=== PATIENT | female | born 1995 | race Caucasian/White ===

== ENCOUNTER 2021-05-28 09:02 | Emergency (ER) | payer OTHER, SELFPAY ==
[2021-05-28 09:05] VITALS: BP 121/82; PULSE 79; RESP 16; TEMP 36.4; O2SAT 100; BMI 25.0
--- NOTE | 2021-05-28 09:13 | ECG_ITS ---
[facility] Test Date: 2021-05-28 Pat Name: ALEXANDER CHAVEZ Department: Room: Gender: Female Senior Partner: : 1995 Requested By: Brian Hayden Order Number: [id number] Iftikhar MD: Kimberly Monk M.D. Measurements Intervals [place] Rate: 74 P: -16 VT: 136 QRS: 25 QRSD: 102 T: 29 QT: 369 QTc: 411 Interpretive Statements SINUS RHYTHM LOW QRS VOLTAGE IN PRECORDIAL LEADS [QRS DEFLECTION < 1.0 mV IN CHEST LEADS] No previous ECG available for comparison Electronically Signed On 05-28-2021 20:34:42 CDT by Kimberly Monk M.D. [email or web address]
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
[2021-05-28 09:16] VITALS: BP 121/82; PULSE 77; O2SAT 100
[2021-05-28] MEDS: iohexol 300 mg/mL 100 mL Btl IV (09:34)
[2021-05-28 09:48] VITALS: BP 141/89; PULSE 89; O2SAT 99
--- NOTE | 2021-05-28 09:49 | PC.PHAR ---
pt [facility] states she hasnt taken it in a month pt states she just decided to stop taking-
[2021-05-28 10:05] LABS: Basophils # 0.1 10^3/uL (0.0-0.1); Basophils % 0.3 %; Eosinophils % 0.2 %; Hematocrit 39.8 % (37.0-47.0); Hemoglobin 13.2 g/dL (11.5-15.3); Lymphocytes # 1.3 10^3/uL (0.8-4.8); Lymphocytes % 5.9 %; Mean Corpuscular HGB Conc 33.2 g/dL (30.0-36.0); Mean Corpuscular Hemoglobin 29.5 pg (28.0-34.0); Mean Corpuscular Volume 88.8 fl (81-99); Mean Platelet Volume 10.2 fL (7.4-10.4); Monocytes # 1.2 10^3/uL (0.2-0.9); Monocytes % 5.6 %; Neutrophils % 87.6 %; Nucleated Red Blood Cells % 0 %; Platelet Count 341 10^3/cmm (130-400); Red Blood Count 4.48 10^6/uL (4.1-5.3); Red Cell Distribution Width 12.7 % (12.1-15.1); White Blood Count 21.9 10^3/uL (4.0-10.0)
== END 2021-05-28 10:48 ==
PROVIDERS: Emergency Provider Family Medicine
DX: S36.039A Unspecified laceration of spleen, initial encounter (principal); V29.9XXA Motorcycle rider (driver) (passenger) injured in unspecified traffic accident, initial encounter
CPT/HCPCS: 70450; 71260; 72125; 74177; 85025; 93005; 99285; Q9967

== ENCOUNTER 2021-11-07 13:28 | Emergency (ER) | payer OTHER, SELFPAY ==
[2021-11-07 13:46] VITALS: BP 118/90; PULSE 75; RESP 18; TEMP 36.7; O2SAT 99; BMI 25.9
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
[2021-11-07 14:10] VITALS: BP 115/82; PULSE 64; RESP 16; O2SAT 96
--- NOTE | 2021-11-07 14:18 | CTR_ITS ---
PROCEDURE INFORMATION: Exam: CT Abdomen And Pelvis With Contrast Exam date and time: 11/07/2021 2:18 PM Age: 26 years old Clinical indication: Abdominal pain; Generalized; Additional info: Abdominal pain, generalized, n/v/d TECHNIQUE: Imaging protocol: Computed tomography of the abdomen and pelvis with contrast. Axial, coronal and sagittal reformatted images were created and reviewed. Radiation optimization: All CT scans at this facility use at least one of these dose optimization techniques: automated exposure control; mA and/or kV adjustment per patient size (includes targeted exams where dose is matched to clinical indication); or iterative reconstruction. Contrast material: OMNI 300; Contrast volume: 90 ml; Contrast route: INTRAVENOUS (IV); COMPARISON: CT chest abd pel w con* 05/28/2021 9:35 AM RADIATION DOSE METRICS: Total DLP (mGy-cm): 1142.12 FINDINGS: Liver: Unremarkable. Gallbladder and bile ducts: No radiodense gallstones. No biliary ductal dilatation. Pancreas: Unremarkable. Spleen: Unremarkable. Adrenal glands: Normal. No mass. Kidneys and ureters: No mass. No radiodense calculi. No hydronephrosis. Stomach and bowel: No bowel wall thickening. No obstruction. No pneumatosis. Appendix: Normal. Intraperitoneal space: Trace nonspecific free pelvic fluid, likely physiologic. No organized fluid collection. No free air. Vasculature: Unremarkable. No aneurysm. Lymph nodes: Small mesenteric lymph nodes, some of which are clustered along the right psoas musculature. No pathologically enlarged lymph nodes. Urinary bladder: Unremarkable as visualized. Reproductive: Probable involuting left ovarian corpus luteal cyst. Bones/joints: No acute osseous abnormality. Soft tissues: Tiny, fat containing umbilical hernia. CT/CT abdomen pelvis w con* [id number] IMPRESSION: 1. Small mesenteric lymph nodes, some of which are clustered along the right psoas musculature. Findings are nonspecific in appearance but can be seen with mesenteric adenitis. 2. Additional findings, as above.
[2021-11-07 14:25] LABS: Basophils # 0.1 10^3/uL (0.0-0.1); Basophils % 0.7 %; Eosinophils # 0.1 10^3/uL (0.0-0.8); Hematocrit 43.8 % (37.0-47.0); Hemoglobin 14.4 g/dL (11.5-15.3); Lymphocytes # 1.5 10^3/uL (0.8-4.8); Mean Corpuscular HGB Conc 32.9 g/dL (30.0-36.0); Mean Corpuscular Hemoglobin 28.5 pg (28.0-34.0); Mean Corpuscular Volume 86.7 fl (81-99); Mean Platelet Volume 9.8 fL (7.4-10.4); Monocytes # 0.9 10^3/uL (0.2-0.9); Monocytes % 10.6 %; Neutrophils # 5.83 10^3/uL (1.8-7.7); Neutrophils % 69.6 %; Nucleated Red Blood Cells % 0 %; Platelet Count 369 10^3/cmm (130-400); Red Blood Count 5.05 10^6/uL (4.1-5.3); Red Cell Distribution Width 12.1 % (12.1-15.1); White Blood Count 8.4 10^3/uL (4.0-10.0)
[2021-11-07] MEDS: lactated ringers 1,000 ML 999 ML IV (14:34)
[2021-11-07 14:35] VITALS: RESP 16
[2021-11-07] MEDS: ondansetron 2 mg/ML SDV 2 mL 4 MG IVP (14:35)
[2021-11-07] MEDS: morphine 4 mg/mL SDV 1 mL IVP (14:35)
[2021-11-07 14:39] VITALS: BP 118/76; PULSE 88; RESP 16; O2SAT 99
[2021-11-07 14:40] LABS: Alanine Aminotransferase 21 U/L (0-33); Albumin Level 4.5 g/dL (3.5-5.2); Alkaline Phosphatase 49 IU/L (35-105); Anion Gap 15.9 (5-19); Aspartate Amino Transferase 21 U/L (0-32); Blood Urea Nitrogen 7 mg/dL (6-20); Calcium 8.8 mg/dL (8.5-10.5); Carbon Dioxide 27 mmol/L (22-29); Chloride 100 mmol/L (98-107); Glucose 102 mg/dL (65-115); Lipase 20 U/L (13-60); Osmolality Calculated 286 mOsm/kg (285-295); Potassium 3.9 mmol/L (3.5-5.1); Sodium 139 mmol/L (136-145); Total Bilirubin 0.3 mg/dL (0.15-1.2); Total Protein 7.5 g/dL (6.6-8.7)
[2021-11-07 15:18] LABS: Add Urine Microscopic? YES; Bilirubin Urine 1+ (Negative); Blood Urine Neg (Negative); Glucose Urine UA Norm (Normal); Ketones Urine 2+ (Negative); Leukocyte Esterase Urine Trace (Negative); Nitrate Urine Negative (Negative); Protein Urine Neg (Negative); Specific Gravity, Urine 1.015 (1.005-1.030); Urine Appearance Clear (CLEAR); Urine Color Yellow (Yellow); Urobilinogen Urine 1 mg/dL (Negative); pH Urine 7 (5-7)
[2021-11-07] MEDS: iohexol 300 mg/mL 100 mL Btl IV (15:20)
[2021-11-07 15:33] LABS: Add Urine Culture? No; Bacteria Urine TRACE /hpf; Mucus Urine TRACE /hpf; WBC Urine 0-4 /hpf (0-5)
[2021-11-07 16:50] VITALS: BP 120/79; PULSE 76; RESP 16; O2SAT 99
== END 2021-11-07 16:51 | disposition home or self-care (01) ==
PROVIDERS: Emergency Provider Emergency Medicine
DX: I88.0 Nonspecific mesenteric lymphadenitis (principal); E86.0 Dehydration
CPT/HCPCS: 74177; 80053; 81001; 83690; 85025; 96361; 96374; 96375; 99284; J2270; J2405; Q9967

== ENCOUNTER 2021-11-24 11:03 | Emergency (ER) | payer OTHER, SELFPAY ==
[2021-11-24 11:08] VITALS: BP 124/83; PULSE 67; RESP 16; TEMP 36.8; O2SAT 98; BMI 24.3
--- NOTE | 2021-11-24 11:25 | W.ED.ABDPA2 ---
Documented by User: FAIZA Navarro 11/24/21 14:08 HPI - Abdominal Pain General: Chief Complaint: Abdominal Pain Stated Complaint: Stomach pain Time Seen by Provider: 11/24/21 11:06 Source: patient Mode of arrival: ambulatory Limitations: no limitations History of Present Illness: Patient is a 26-year-old female who presents to ED today with a complaint of daily abdominal pains and diarrhea over the past month. She states her abdominal pain is worse when she wakes up in the mornings and will often wake her from sleep. She rates that pain at a 9/10. She tells me she will immediately have the urge to defecate and will have a few episodes of non-bloody diarrhea stool. She tells me she will not have any further diarrhea throughout the day and her abdominal pain will improve. Patient was seen here in our facility on 11/10 for similar symptoms although she did have vomiting at that time. Patient states she has not had any further episodes of vomiting. Patient is not running fevers. No urinary complaints. LMP was approximately a week ago. No dietary changes. No new medications. No unexplained weight loss. She does state her mother has a history of IBS. She has not had any follow-up outside of an emergency setting. MD elicited complaint: abdominal pain Pertinent past history: none Onset (ago): month(s) Pain Consistency: intermittent Location: Diffuse Severity: severe Pain scale (0-10): 9 Quality: cramping and sharp Radiation: none Migration to: no migration Exacerbating factors: nothing Relieving factors: bowel movement Associated Symptoms: Reports bloating and diarrhea; Denies chills, coffee ground emesis, dysuria, fever(s), hematochezia, hematemesis, melena, nausea and vomiting Related Data: Hx Last Menstrual Period: a few days ago-still bleeding Patient : No Review of Systems Const: Denies: fever(s), chills, body aches, fatigue or malaise Card: Denies: chest pain Resp: Denies: dyspnea GI: Reports: abdominal pain, diarrhea and bloating; Denies: nausea, vomiting, hematemesis, coffee ground emesis, pain on defecation, rectal pain, hematochezia, melena, mucus in stool or white/light colored stool : Denies: flank pain, dysuria, vaginal bleeding or pelvic pain Musc: Denies: neck pain, back pain, extremity pain or joint pain Skin/Breast: Denies: rash Neuro: Denies: headache(s) or dizziness PFSH ED PFSH: Medical History History of spleen injury Scoliosis Surgical History No significant past surgical history Physical Exam Const: COMMON NORMALS: no acute distress, average body habitus, patient oriented x3, no limitations, healthy appearing, alert and well nourished HENMT: COMMON NORMALS: normocephalic and atraumatic HEAD & SCALP: normocephalic and atraumatic Resp: COMMON NORMALS: normal respiratory effort and clear to auscultation bilaterally AUSCULTATION: clear to auscultation bilaterally Cardio: COMMON NORMALS: regular rate and regular rhythm RATE: regular rate RHYTHM: regular rhythm GI: COMMON NORMALS: Normal to inspection, nondistended, normoactive bowel sounds present, Soft to palpation, No hepatosplenomegaly present and no masses INSPECTION: Yes normal to inspection PALPATION: Yes Soft to palpation, Yes Tenderness to palpation present (GI) (mild diffuse tenderness-non surgical exam), No Guarding due to palpation present (GI), No Rigid due to palpation and Yes No hepatosplenomegaly present : COMMON NORMALS: Yes no CVA tenderness BLADDER/KIDNEY EXAM: Yes no CVA tenderness Back/Pelvis: COMMON NORMALS: no CVA tenderness Extremity: GENERAL: Yes normal exam except as noted Neuro: MARCELLO COMA SCALE: document GCS findings Marcello coma scale eye opening: Spontaneous Marcello coma scale verbal response: Orientated Dickinson coma scale motor response: Obey commands Marcello coma scale total score: 15 COMMON NORMALS: patient oriented x3, moves all extremities, no focal motor deficits, no sensory deficits noted and gait normal SENSORIUM/ORIENTATION: Yes alert Skin: COMMON NORMALS: no rashes or lesions noted GENERAL SKIN EXAM: no rashes or lesions noted Course Vital Signs: Vital signs: Vital Signs Temperature 98.3 F 11/24/21 11:08 Pulse Rate 67 11/24/21 11:08 Respiratory Rate 16 11/24/21 11:08 Blood Pressure 112/63 11/24/21 13:12 Pulse Oximetry 98 11/24/21 13:12 MDM - Abdominal Pain Medical Decision Making Patient has a nonsurgical abdominal examination. Her vital signs are perfect. Patient's history is that abdominal pain is worst first thing in the morning and is accompanied by several episodes of nonbloody diarrhea. She will not have any further episodes of diarrhea throughout the day and abdominal pain does improve. Blood work today is unremarkable. Patient received a CT scan of her abdomen/pelvis on her last ED visit here a few weeks ago which showed mesenteric adenitis but no other significant findings. I do not feel we need to repeat this on today's visit. Patient is tearful and frustrated at the lack of diagnosis. I believe patient would benefit from GI specialty consult. She does not want to go to [place] if possible therefore will have case management see if Dr. Miranda could evaluate her for further etiologies of her discomfort. Will try trial of Bentyl in hopes that this may help with her colicky/crampy pains in the mornings. Lab Data : 11/24/21 11:25 11/24/21 12:49 Labs/Radiology: Laboratory Results WBC 8.5 10^3/uL (4.0-10.0) 11/24/21 11:25 RBC 4.44 10^6/uL (4.1-5.3) 11/24/21 11:25 Hgb 12.9 g/dL (11.5-15.3) 11/24/21 11:25 Hct 39.0 % (37.0-47.0) 11/24/21 11:25 MCV 87.8 fl (81-99) 11/24/21 11:25 MCH 29.1 pg (28.0-34.0) 11/24/21 11:25 MCHC 33.1 g/dL (30.0-36.0) 11/24/21 11:25 RDW 12.5 % (12.1-15.1) 11/24/21 11:25 Plt Count 409 10^3/cmm (130-400) H 11/24/21 11:25 MPV 10.1 fL (7.4-10.4) 11/24/21 11:25 Neut % (Auto) 76.4 % 11/24/21 11:25 Lymph % (Auto) 13.8 % 11/24/21 11:25 [place] % (Auto) 7.3 % 11/24/21 11:25 Eos % (Auto) 1.6 % 11/24/21 11:25 Baso % (Auto) 0.7 % 11/24/21 11:25 Neut # (Auto) 6.49 10^3/uL (1.8-7.7) 11/24/21 11:25 Lymph # (Auto) 1.2 10^3/uL (0.8-4.8) 11/24/21 11:25 [place] # (Auto) 0.6 10^3/uL (0.2-0.9) 11/24/21 11:25 Eos # (Auto) 0.1 10^3/uL (0.0-0.8) 11/24/21 11:25 Baso # (Auto) 0.1 10^3/uL (0.0-0.1) 11/24/21 11:25 Nucleated RBC % (auto) 0 % 11/24/21 11:25 Nucleated RBCs # 0.0 /100WBC 11/24/21 11:25 Sodium 138 mmol/L (136-145) 11/24/21 12:49 Potassium 4.6 mmol/L (3.5-5.1) 11/24/21 12:49 Chloride 103 mmol/L (98-107) 11/24/21 12:49 Carbon Dioxide 26 mmol/L (22-29) 11/24/21 12:49 Anion Gap 13.6 (5-19) 11/24/21 12:49 BUN 6 mg/dL (6-20) 11/24/21 12:49 Creatinine 0.7 mg/dL (0.5-0.9) 11/24/21 12:49 GFR Calculation 102.0 mL/min (90-130) 11/24/21 12:49 Glucose 105 mg/dL (65-115) 11/24/21 12:49 Calculated Osmolality 284 mOsm/kg (285-295) L 11/24/21 12:49 Calcium 9.8 mg/dL (8.5-10.5) 11/24/21 12:49 Total Bilirubin 0.4 mg/dL (0.15-1.2) 11/24/21 12:49 AST 19 U/L (0-32) 11/24/21 12:49 ALT 18 U/L (0-33) 11/24/21 12:49 Alkaline Phosphatase 45 IU/L (35-105) 11/24/21 12:49 Total Protein 7.1 g/dL (6.6-8.7) 11/24/21 12:49 Albumin 4.7 g/dL (3.5-5.2) 11/24/21 12:49 Globulin 2.4 g/dL (1.3-4.6) 11/24/21 12:49 Lipase 14 U/L (13-60) 11/24/21 12:49 HCG, Qual Negative (Negative) 11/24/21 12:49 Urine Color Yellow (Yellow) 11/24/21 11:50 Urine Appearance Clear (CLEAR) 11/24/21 11:50 Urine pH 6 (5-7) 11/24/21 11:50 Ur Specific [place] 1.015 (1.005-1.030) 11/24/21 11:50 Urine Protein Neg (Negative) 11/24/21 11:50 Urine Glucose (UA) Norm (Normal) 11/24/21 11:50 Urine Ketones Negative (Negative) 11/24/21 11:50 Urine Blood Neg (Negative) 11/24/21 11:50 Urine Nitrate Negative (Negative) 11/24/21 11:50 Urine Bilirubin Neg (Negative) 11/24/21 11:50 Urine Urobilinogen Norm mg/dL (Negative) 11/24/21 11:50 Ur Leukocyte Esterase Negative (Negative) 11/24/21 11:50 Discharge Plan Discharge Patient Disposition: Home Clinical Impression: Abdominal pain of unknown etiology Condition: Stable Prescriptions: New dicyclomine 10 mg capsule 10 mg PO TID Qty: 20 0RF No Action oxycodone 5 mg tablet 5 mg PO Q4H PRN (Reason: pain) Qty: 10 0RF Discharge Orders: Discharge ED (Routine); Ordered 11/24/21 Ordered By: Jacqueline Ramirez Patient Instructions: Abdominal Pain (ED) Coding Level of Care Code ED Executive Staff Assistant for [employer] Fwd Exam Comprehensive Documented by User: Zeus Mccullough MD 11/30/21 21:45 HPI - Abdominal Pain General: Chief Complaint: Abdominal Pain Stated Complaint: Stomach pain Time Seen by Provider: 11/24/21 11:06 [facility] ED PFSH: Medical History History of spleen injury Scoliosis Surgical History No significant past surgical history Physical Exam Neuro: MARCELLO COMA SCALE: document GCS findings Marcello coma scale total score: 15 Course Vital Signs: Vital signs: Vital Signs Temperature 98.3 F 11/24/21 11:08 Pulse Rate 67 11/24/21 11:08 Respiratory Rate 16 11/24/21 11:08 Blood Pressure 112/63 11/24/21 13:12 Pulse Oximetry 98 11/24/21 13:12 MDM - Abdominal Pain Medical Decision Making Patient has a nonsurgical abdominal examination. Her vital signs are perfect. Patient's history is that abdominal pain is worst first thing in the morning and is accompanied by several episodes of nonbloody diarrhea. She will not have any further episodes of diarrhea throughout the day and abdominal pain does improve. Blood work today is unremarkable. Patient received a CT scan of her abdomen/pelvis on her last ED visit here a few weeks ago which showed mesenteric adenitis but no other significant findings. I do not feel we need to repeat this on today's visit. Patient is tearful and frustrated at the lack of diagnosis. I believe patient would benefit from GI specialty consult. She does not want to go to [place] if possible therefore will have case management see if Dr. Miranda could evaluate her for further etiologies of her discomfort. Will try trial of Bentyl in hopes that this may help with her colicky/crampy pains in the mornings. I have reviewed this documentation by FAIZA Navarro. Zeus Mccullough MD Emergency Medicine Lab Data : 11/24/21 11:25 11/24/21 12:49 Labs/Radiology: Laboratory Results WBC 8.5 10^3/uL (4.0-10.0) 11/24/21 11:25 RBC 4.44 10^6/uL (4.1-5.3) 11/24/21 11:25 Hgb 12.9 g/dL (11.5-15.3) 11/24/21 11:25 Hct 39.0 % (37.0-47.0) 11/24/21 11:25 MCV 87.8 fl (81-99) 11/24/21 11:25 MCH 29.1 pg (28.0-34.0) 11/24/21 11:25 MCHC 33.1 g/dL (30.0-36.0) 11/24/21 11:25 RDW 12.5 % (12.1-15.1) 11/24/21 11:25 Plt Count 409 10^3/cmm (130-400) H 11/24/21 11:25 MPV 10.1 fL (7.4-10.4) 11/24/21 11:25 Neut % (Auto) 76.4 % 11/24/21 11:25 Lymph % (Auto) 13.8 % 11/24/21 11:25 [place] % (Auto) 7.3 % 11/24/21 11:25 Eos % (Auto) 1.6 % 11/24/21 11:25 Baso % (Auto) 0.7 % 11/24/21 11:25 Neut # (Auto) 6.49 10^3/uL (1.8-7.7) 11/24/21 11:25 Lymph # (Auto) 1.2 10^3/uL (0.8-4.8) 11/24/21 11:25 [place] # (Auto) 0.6 10^3/uL (0.2-0.9) 11/24/21 11:25 Eos # (Auto) 0.1 10^3/uL (0.0-0.8) 11/24/21 11:25 Baso # (Auto) 0.1 10^3/uL (0.0-0.1) 11/24/21 11:25 Nucleated RBC % (auto) 0 % 11/24/21 11:25 Nucleated RBCs # 0.0 /100WBC 11/24/21 11:25 Sodium 138 mmol/L (136-145) 11/24/21 12:49 Potassium 4.6 mmol/L (3.5-5.1) 11/24/21 12:49 Chloride 103 mmol/L (98-107) 11/24/21 12:49 Carbon Dioxide 26 mmol/L (22-29) 11/24/21 12:49 Anion Gap 13.6 (5-19) 11/24/21 12:49 BUN 6 mg/dL (6-20) 11/24/21 12:49 Creatinine 0.7 mg/dL (0.5-0.9) 11/24/21 12:49 GFR Calculation 102.0 mL/min (90-130) 11/24/21 12:49 Glucose 105 mg/dL (65-115) 11/24/21 12:49 Calculated Osmolality 284 mOsm/kg (285-295) L 11/24/21 12:49 Calcium 9.8 mg/dL (8.5-10.5) 11/24/21 12:49 Total Bilirubin 0.4 mg/dL (0.15-1.2) 11/24/21 12:49 AST 19 U/L (0-32) 11/24/21 12:49 ALT 18 U/L (0-33) 11/24/21 12:49 Alkaline Phosphatase 45 IU/L (35-105) 11/24/21 12:49 Total Protein 7.1 g/dL (6.6-8.7) 11/24/21 12:49 Albumin 4.7 g/dL (3.5-5.2) 11/24/21 12:49 Globulin 2.4 g/dL (1.3-4.6) 11/24/21 12:49 Lipase 14 U/L (13-60) 11/24/21 12:49 HCG, Qual Negative (Negative) 11/24/21 12:49 Urine Color Yellow (Yellow) 11/24/21 11:50 Urine Appearance Clear (CLEAR) 11/24/21 11:50 Urine pH 6 (5-7) 11/24/21 11:50 Ur Specific [place] 1.015 (1.005-1.030) 11/24/21 11:50 Urine Protein Neg (Negative) 11/24/21 11:50 Urine Glucose (UA) Norm (Normal) 11/24/21 11:50 Urine Ketones Negative (Negative) 11/24/21 11:50 Urine Blood Neg (Negative) 11/24/21 11:50 Urine Nitrate Negative (Negative) 11/24/21 11:50 Urine Bilirubin Neg (Negative) 11/24/21 11:50 Urine Urobilinogen Norm mg/dL (Negative) 11/24/21 11:50 Ur Leukocyte Esterase Negative (Negative) 11/24/21 11:50 Discharge Plan Discharge Patient Disposition: Home Clinical Impression: Abdominal pain of unknown etiology Condition: Stable Prescriptions: New dicyclomine 10 mg capsule 10 mg PO TID Qty: 20 0RF No Action oxycodone 5 mg tablet 5 mg PO Q4H PRN (Reason: pain) Qty: 10 0RF Discharge Orders: Discharge ED (Routine); Ordered 11/24/21 Ordered By: Jacqueline Ramirez Patient Instructions: Abdominal Pain (ED) Coding Level of Care Code ED Executive Staff Assistant for [employer] Fwd Exam Comprehensive
[2021-11-24 11:48] LABS: Basophils # 0.1 10^3/uL (0.0-0.1); Basophils % 0.7 %; Eosinophils # 0.1 10^3/uL (0.0-0.8); Eosinophils % 1.6 %; Hemoglobin 12.9 g/dL (11.5-15.3); Lymphocytes # 1.2 10^3/uL (0.8-4.8); Lymphocytes % 13.8 %; Mean Corpuscular HGB Conc 33.1 g/dL (30.0-36.0); Mean Corpuscular Hemoglobin 29.1 pg (28.0-34.0); Mean Corpuscular Volume 87.8 fl (81-99); Mean Platelet Volume 10.1 fL (7.4-10.4); Monocytes # 0.6 10^3/uL (0.2-0.9); Monocytes % 7.3 %; Neutrophils # 6.49 10^3/uL (1.8-7.7); Neutrophils % 76.4 %; Nucleated Red Blood Cells % 0 %; Platelet Count 409 10^3/cmm (130-400); Red Blood Count 4.44 10^6/uL (4.1-5.3); Red Cell Distribution Width 12.5 % (12.1-15.1); White Blood Count 8.5 10^3/uL (4.0-10.0)
[2021-11-24 12:03] LABS: Add Urine Microscopic? NO; Charge for UA Resulting for Rev
[2021-11-24 12:13] LABS: Bilirubin Urine Neg (Negative); Blood Urine Neg (Negative); Glucose Urine UA Norm (Normal); Ketones Urine Negative (Negative); Leukocyte Esterase Urine Negative (Negative); Nitrate Urine Negative (Negative); Protein Urine Neg (Negative); Specific Gravity, Urine 1.015 (1.005-1.030); Urine Appearance Clear (CLEAR); Urine Color Yellow (Yellow); Urobilinogen Urine Norm (Negative); pH Urine 6 (5-7)
--- NOTE | 2021-11-24 12:13 | PC.PHAR ---
pts [facility] med list has she is allergic to adhesives and sertraline pt states she is not allergic to anything-pt states she hasnt taken celexa in almost a year in [place]
[2021-11-24 13:12] VITALS: BP 112/63; O2SAT 98
[2021-11-24 13:16] LABS: HCG, Serum Qual Negative (Negative)
[2021-11-24 13:21] LABS: Alanine Aminotransferase 18 U/L (0-33); Albumin Level 4.7 g/dL (3.5-5.2); Alkaline Phosphatase 45 IU/L (35-105); Anion Gap 13.6 (5-19); Aspartate Amino Transferase 19 U/L (0-32); Blood Urea Nitrogen 6 mg/dL (6-20); Calcium 9.8 mg/dL (8.5-10.5); Carbon Dioxide 26 mmol/L (22-29); Chloride 103 mmol/L (98-107); Globulin 2.4 g/dL (1.3-4.6); Glucose 105 mg/dL (65-115); Lipase 14 U/L (13-60); Osmolality Calculated 284 mOsm/kg (285-295); Potassium 4.6 mmol/L (3.5-5.1); Sodium 138 mmol/L (136-145); Total Bilirubin 0.4 mg/dL (0.15-1.2); Total Protein 7.1 g/dL (6.6-8.7)
--- NOTE | 2021-11-25 10:10 | DCPLANNER ---
Addendum entered by Jacklyn Bedoya 12/29/21 20:33: Patient had follow up appointment for patient with Dr. Miranda - patient did attend appointment. Addendum entered by Jacklyn Bedoya 11/25/21 10:15: Patient has [facility] insurance, patients information was sent to Larry with [facility], for the authorization process could be started. Original Note: associate program manager had message to schedule a follow up appointment for patient with Dr. Miranda. associate program manager called the office of Dr. Miranda, spoke with Ashlee, gave clinic patients information. A follow up appointment was scheduled for , December 10, 2021 at 2:[address] Miranda. associate program manager called patient and gave her the appointment information.
== END 2021-11-24 14:24 | disposition home or self-care (01) ==
PROVIDERS: Emergency Provider Physician Assistant
DX: R10.9 Unspecified abdominal pain (principal)
CPT/HCPCS: 80053; 81003; 83690; 84703; 85025; 99283

== ENCOUNTER 2021-12-14 08:14 | Day surgery (SDC) | payer OTHER, SELFPAY ==
[2021-12-04 09:41] VITALS: BMI 24.3
--- NOTE | 2021-12-07 07:42 | P.HP_ITS ---
Same Day Surgery H&P Indication for Procedure/HPI DATE OF PROCEDURE: December 07, 2021 CHIEF COMPLAINT/INDICATIONFOR SURGICAL PROCEDURE: Nausea and vomiting PREOP DIAGNOSIS: Nausea and vomiting PLANNED PROCEDURE: Operation Date: 12/07/21 09:30 Proposed Procedures p EGD 33522/r10.13(Not Applicable) - Kal Miranda MD Medications/Allergies* Home Medications Medication Instructions Recorded Confirmed Type cyclobenzaprine 10 mg tablet 10 mg PO TID 12/03/21 12/04/21 History ondansetron 4 mg disintegrating 4 mg PO Q6H 12/03/21 12/04/21 History tablet Allergies/Adverse Reactions Allergy/AdvReac Type Severity Reaction Status Date / Time No Known Allergies Allergy Verified 12/03/21 14:51 Pertinent History/Comorbid Conditions* Medical History (Updated 12/03/21 @ 15:31 by Kal Miranda MD) History of spleen injury Scoliosis Surgical History (Updated 11/07/21 @ 14:25 by Zeus Mccullough MD) No significant past surgical history Pertinent Exam Findings alert, oriented x 3, clear to auscultation bilaterally, regular rate & rhythm, operative site marked and procedure specific exam findings Recommendations Surgery/Procedure today Coding Level of Care Code Acute [employer] Research Engineer for Brian Bonilla
--- NOTE | 2021-12-14 08:55 | ANES.PREANE2 ---
Pre-Anesthetic Assessment Height/Weight: Height 1.7 m Weight 70.307 kg Preop Diagnosis: Epigastric pain Operation Date: 12/14/21 09:30 Proposed Procedures p EGD 91276/r10.13(Not Applicable) - Kal Miranda MD Familial anesthetic complications: None Was Beta Riya taken within 24 hours: N/A Was Clonidine taken within 24 hours: N/A Social Tobacco and No alcohol Exam alert, oriented x 3, clear to auscultation bilaterally and regular rate & rhythm Airway Submandibular: within normal limits Cervical ROM: within normal limits Mallampati: Class II Dentition: chipped Pulmonary Chronic Obstructive Pulmonary Disease GI Gastroesophageal Reflux Disease Neuropsych Anxiety and Depression Anesthetic Plan ASA status: 2 Anesthesia: MAC Medications/Allergies Home Medications Medication Instructions Recorded Confirmed Last Taken Type pantoprazole 40 mg tablet,delayed 40 mg PO QAM #90 tab 12/03/21 12/10/21 Unknown Rx release Allergies Allergy/AdvReac Type Severity Reaction Status Date / Time No Known Allergies Allergy Verified 12/10/21 12:31 [facility] Anesthesia Medical History History of spleen injury Scoliosis Surgical History No significant past surgical history Female Reproductive History Date of last menstrual period: 12/22/21 Data Anesthesia Cardiac Studies: No Data to Display
[2021-12-14 09:03] VITALS: BP 105/67; PULSE 79; RESP 18; TEMP 36.4; O2SAT 99
[2021-12-14] MEDS: sodium chloride 0.9% 1,000 ML 30 ML IV (09:09)
[2021-12-14 09:12] LABS: OR HCG Qualitative Urine Negative (Negative)
[2021-12-14 09:24] VITALS: BP 108/70; PULSE 83; RESP 18; TEMP 36.4; O2SAT 93
--- NOTE | 2021-12-14 09:26 | ANE.PACU2 ---
Inpatient post-anesthesia follow up: Airway intact: Yes Vital signs: Temperature 97.6 F Pulse Rate 83 Respiratory Rate 18 Blood Pressure 108/70 Pulse Oximetry 93 Oxygen Delivery Me thod Room Air Oxygen Flow Rate Fraction of Inspir ed Oxygen Hydration adequate: Yes Nausea and vomiting: No Pain level: 1 Mental status: Baseline
[2021-12-14 09:30] VITALS: BP 106/62; PULSE 81; RESP 18; O2SAT 93
== END 2021-12-14 09:58 | disposition home or self-care (01) ==
PROVIDERS: Anesthesiology; Visit Provider Internal Medicine
PROC: 0DJ08ZZ Inspection of Upper Intestinal Tract, Via Natural or Artificial Opening Endoscopic (ICD-10-PCS; CPT 43235; principal; 2021-12-14 09:30)
DX: R10.13 Epigastric pain (principal); R11.2 Nausea with vomiting, unspecified; K31.7 Polyp of stomach and duodenum; J44.9 Chronic obstructive pulmonary disease, unspecified; K21.9 Gastro-esophageal reflux disease without esophagitis; F41.9 Anxiety disorder, unspecified; F32.9 Major depressive disorder, single episode, unspecified
CPT/HCPCS: 43239; 84703; 88305; J2704; J7030

== ENCOUNTER 2022-04-19 12:16 | Emergency (ER) | payer OTHER, SELFPAY ==
[2022-04-19 12:46] VITALS: BP 129/85; PULSE 79; RESP 16; TEMP 36.9; O2SAT 97; BMI 21.9
[2022-04-19 13:30] LABS: Basophils # 0.1 10^3/uL (0.0-0.1); Basophils % 0.5 %; Eosinophils % 0.4 %; Hematocrit 42.9 % (37.0-47.0); Lymphocytes # 2.3 10^3/uL (0.8-4.8); Lymphocytes % 22.2 %; Mean Corpuscular HGB Conc 32.6 g/dL (30.0-36.0); Mean Corpuscular Hemoglobin 28.7 pg (28.0-34.0); Mean Corpuscular Volume 88.1 fl (81-99); Mean Platelet Volume 10.1 fL (7.4-10.4); Monocytes # 0.7 10^3/uL (0.2-0.9); Monocytes % 6.8 %; Neutrophils # 7.24 10^3/uL (1.8-7.7); Neutrophils % 69.8 %; Nucleated Red Blood Cells % 0 %; Platelet Count 400 10^3/cmm (130-400); Red Blood Count 4.87 10^6/uL (4.1-5.3); Red Cell Distribution Width 12.2 % (12.1-15.1); White Blood Count 10.4 10^3/uL (4.0-10.0)
[2022-04-19 13:43] LABS: HCG, Serum Qual Negative (Negative)
[2022-04-19 14:13] LABS: Alanine Aminotransferase 13 U/L (0-33); Albumin Level 4.9 g/dL (3.5-5.2); Alkaline Phosphatase 49 U/L (35-105); Anion Gap 22.4 (5-19); Aspartate Amino Transferase 18 U/L (0-32); Blood Urea Nitrogen 5 mg/dL (6-20); Calcium 9.5 mg/dL (8.5-10.5); Carbon Dioxide 23 mmol/L (22-29); Chloride 98 mmol/L (98-107); Glucose 69 mg/dL (65-115); Lipase 13 U/L (13-60); Osmolality Calculated 286 mOsm/kg (285-295); Potassium 3.4 mmol/L (3.5-5.1); Sodium 140 mmol/L (136-145); Total Bilirubin 0.5 mg/dL (0.15-1.2); Total Protein 7.9 g/dL (6.6-8.7)
[2022-04-19 15:50] VITALS: BP 129/85; PULSE 79; RESP 16; TEMP 36.9; O2SAT 97
--- NOTE | 2022-04-19 15:58 | ED_ITS ---
Documented by User: FAIZA Navarro 04/20/22 11:22 HPI - Abdominal Pain General: Chief Complaint: Abdominal Pain Stated Complaint: hot flashes, nausea, abd pain Time Seen by Provider: 04/19/22 15:32 Source: patient Mode of arrival: ambulatory Limitations: no limitations History of Present Illness: Patient comes in today with complaints of nausea and vomiting that she has been unable to control at home. Patient's had previous histories of similar episodes. Patient also reports epigastric pain. Patient appears unwell but not toxic. Patient appears in mild to moderate pain. Patient is a 26-year-old female presents to ED today with a complaint of nausea, vomiting, abdominal pains, and hot flashes. Patient tells me symptoms initially started last Tuesday or when she took a 40 mg citalopram. Patient tells me she has been taking pantoprazole daily but has had some recent increased stress so had re-started herself on citalopram. She states a few ho urs after taking this medication she began having symptoms. She contacted her PCP office who told her there are major med interactions between pantoprazole and citalopram that she should not take these 2 medications together. Patient states since that time she has continued to have symptoms. She is an everyday marijuana smoker. States she takes the pantoprazole for gastritis that was diagnosed via endoscopy. Patient is not running fevers. MD elicited complaint: abdominal pain Onset (ago): day(s) Pain Consistency: constant Location: Diffuse Exacerbating factors: eating Relieving factors: nothing Associated Symptoms: Denies dysuria, fever(s) and hematuria Related Data: Date of Last Menstrual Period: 12/22/21 Patient : No Review of Systems Const: Denies: fever(s), body aches, fatigue or malaise : Denies: flank pain, dysuria or hematuria Musc: Denies: neck pain, back pain, extremity pain or joint pain Skin/Breast: Denies: rash Neuro: Denies: headache(s) Psych: Reports: anxiety PFSH ED PFSH: Medical History History of spleen injury Scoliosis Surgical History No significant past surgical history Female Reproductive History: Date of last menstrual period: 12/22/21 Physical Exam Const: COMMON NORMALS: no acute distress, average body habitus, patient oriented x3, no limitations, healthy appearing and well nourished GENERAL APPEARANCE: cooperative Resp: COMMON NORMALS: normal respiratory effort and clear to auscultation bilaterally AUSCULTATION: clear to auscultation bilaterally Cardio: COMMON NORMALS: regular rate and regular rhythm RATE: regular rate RHYTHM: regular rhythm GI: COMMON NORMALS: No hepatosplenomegaly present and no masses INSPECTION: Yes normal to inspection PALPATION: No Guarding due to palpation present (GI), No Rigid due to palpation and Yes No hepatosplenomegaly present Neuro: MARCELLO COMA SCALE: document GCS findings Marcello coma scale eye opening: Spontaneous [place] coma scale verbal response: Orientated [place] coma scale motor response: Obey commands Marcello coma scale total score: 15 COMMON NORMALS: patient oriented x3 Skin: COMMON NORMALS: no rashes or lesions noted GENERAL SKIN EXAM: no rashes or lesions noted Course ED course: Care transferred to SARMAD Ocampo. She has nausea/anxiety meds ordered. CT scan pending radiology read. Vitals and labs appear stable at this time. Vital Signs: Vital signs: Vital Signs Temperature 98.4 F 04/19/22 15:50 Pulse Rate 79 04/19/22 15:50 Respiratory Rate 16 04/19/22 15:50 Blood Pressure 129/85 04/19/22 15:50 Pulse Oximetry 97 04/19/22 15:50 Oxygen Delivery Me thod 04/19/22 15:50 MDM - Abdominal Pain Lab Data : 04/19/22 13:18 04/19/22 13:18 Labs/Radiology: Radiology Impressions Abdomen/Pelvis CT 04/19/22 16:14 IMPRESSION: 1. No acute finding 2. 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 3. Small urachal cyst, larger than on prior studies. COMMENTS: Consistent with the [employer]'s Incidental Findings Committee white paper (J Am Pramod Radiol 2018): Any incidental renal lesion less than 1 cm or classified as too small to characterize, or any incidental cystic renal lesion characterized as simple-appearing, is likely benign. No follow-up imaging is recommended for these lesions per consensus recommendations based on imaging criteria. ADDENDUM: 04/19/22 [id number] Addendum: Findings were discussed with DAVID Swenson at 04/19/2022 5:41 PM CDT. Additional impression: Cholelithiasis Laboratory Results WBC 10.4 10^3/uL (4.0-10.0) H 04/19/22 13:18 RBC 4.87 10^6/uL (4.1-5.3) 04/19/22 13:18 Hgb 14.0 g/dL (11.5-15.3) 04/19/22 13:18 Hct 42.9 % (37.0-47.0) 04/19/22 13:18 MCV 88.1 fl (81-99) 04/19/22 13:18 MCH 28.7 pg (28.0-34.0) 04/19/22 13:18 MCHC 32.6 g/dL (30.0-36.0) 04/19/22 13:18 RDW 12.2 % (12.1-15.1) 04/19/22 13:18 Plt Count 400 10^3/cmm (130-400) 04/19/22 13:18 MPV 10.1 fL (7.4-10.4) 04/19/22 13:18 Neut % (Auto) 69.8 % 04/19/22 13:18 Lymph % (Auto) 22.2 % 04/19/22 13:18 Bennett % (Auto) 6.8 % 04/19/22 13:18 Eos % (Auto) 0.4 % 04/19/22 13:18 Baso % (Auto) 0.5 % 04/19/22 13:18 Neut # (Auto) 7.24 10^3/uL (1.8-7.7) 04/19/22 13:18 Lymph # (Auto) 2.3 10^3/uL (0.8-4.8) 04/19/22 13:18 Bennett # (Auto) 0.7 10^3/uL (0.2-0.9) 04/19/22 13:18 Eos # (Auto) 0.0 10^3/uL (0.0-0.8) 04/19/22 13:18 Baso # (Auto) 0.1 10^3/uL (0.0-0.1) 04/19/22 13:18 Nucleated RBC % (auto) 0 % 04/19/22 13:18 Nucleated RBCs # 0.0 /100WBC 04/19/22 13:18 Sodium 140 mmol/L (136-145) 04/19/22 13:18 Potassium 3.4 mmol/L (3.5-5.1) L 04/19/22 13:18 Chloride 98 mmol/L (98-107) 04/19/22 13:18 Carbon Dioxide 23 mmol/L (22-29) 04/19/22 13:18 Anion Gap 22.4 (5-19) H 04/19/22 13:18 BUN 5 mg/dL (6-20) L 04/19/22 13:18 Creatinine 0.7 mg/dL (0.5-0.9) 04/19/22 13:18 GFR Calculation 102.0 mL/min (90-130) 04/19/22 13:18 Glucose 69 mg/dL (65-115) 04/19/22 13:18 Calculated Osmolality 286 mOsm/kg (285-295) 04/19/22 13:18 Calcium 9.5 mg/dL (8.5-10.5) 04/19/22 13:18 Total Bilirubin 0.5 mg/dL (0.15-1.2) 04/19/22 13:18 AST 18 U/L (0-32) 04/19/22 13:18 ALT 13 U/L (0-33) 04/19/22 13:18 Alkaline Phosphatase 49 U/L (35-105) 04/19/22 13:18 Total Protein 7.9 g/dL (6.6-8.7) 04/19/22 13:18 Albumin 4.9 g/dL (3.5-5.2) 04/19/22 13:18 Globulin 3.0 g/dL (1.3-4.6) 04/19/22 13:18 Lipase 13 U/L (13-60) 04/19/22 13:18 HCG, Qual Negative (Negative) 04/19/22 13:18 Urine Color Yellow (Yellow) 04/19/22 15:56 Urine Appearance Clear (CLEAR) 04/19/22 15:56 Urine pH 6 (5-7) 04/19/22 15:56 Ur Specific [place] 1.025 (1.005-1.030) 04/19/22 15:56 Urine Protein Trace (Negative) 04/19/22 15:56 Urine Glucose (UA) Norm (Normal) 04/19/22 15:56 Urine Ketones 3+ (Negative) H 04/19/22 15:56 Urine Blood Neg (Negative) 04/19/22 15:56 Urine Nitrate Negative (Negative) 04/19/22 15:56 Urine Bilirubin Neg (Negative) 04/19/22 15:56 Urine Urobilinogen Norm mg/dL (Negative) 04/19/22 15:56 Ur Leukocyte Esterase Trace (Negative) H 04/19/22 15:56 Urine RBC None /hpf (0-2) 04/19/22 15:56 Urine WBC 10-15 /hpf (0-5) H 04/19/22 15:56 Ur Squamous Epith Cells 0-4 /hpf (0-5) H 04/19/22 15:56 Amorphous Sediment Not Reportable 04/19/22 15:56 Urine Bacteria 1+ /hpf (NONE) H 04/19/22 15:56 Urine Mucus Trace /hpf 04/19/22 15:56 Discharge Plan Discharge Patient Disposition: Home Clinical Impression: Gallbladder anomaly, Urachal cyst Nausea & vomiting Qualifiers: Vomiting type: unspecified Qualified Code(s): R11.2 - Nausea with vomiting, unspecified Condition: Stable Prescriptions: Changed ondansetron 4 mg tablet,disintegrating 4 mg PO Q6H PRN (Reason: Nausea And Vomiting) Qty: 10 0RF No Action pantoprazole 40 mg tablet,delayed release (DR/EC) 40 mg PO QAM Qty: 90 3RF Discharge Orders: Discharge ED (Routine); Ordered 04/19/22 Ordered By: Gucci Vo Discharge Diet: Usual diet Discharge Activity: Increase activity as tolerated Patient Instructions: Abdominal Pain (ED) Activity Restrictions/Additional Instructions: Drink frequent sips of water to avoid dehydration. Clear liquid diet until pain resolves. Use Zofran 4 mg every 6 hours as needed for nausea and vomiting. Follow-up with surgeon regarding abnormalities on CT scan. Return to ER for worsening symptoms such as uncontrolled pain, uncontrolled nausea and vomiting, fever greater than 100.4 with abdominal pain, blood in vomit or stool, or new concerns. Stand Alone Forms: Work/School Release Sign Out Sign Out Data: Patient Sign Out occurred on 04/19/22 at 17:12. Patient's care was discussed, and care was transferred from to Gucci Vo. Coding Level of Care Code ED Vice President Of Instruction for Chg Fwd Exam Detailed Documented by User: SARMAD French 04/19/22 17:54 HPI - Abdominal Pain General: Chief Complaint: Abdominal Pain Stated Complaint: hot flashes, nausea, abd pain Time Seen by Provider: 04/19/22 15:32 History of Present Illness: Patient comes in today with complaints of nausea and vomiting that she has been unable to control at home. Patient's had previous histories of similar episodes. Patient also reports epigastric pain. Patient appears unwell but not toxic. Patient appears in mild to moderate pain. Associated Symptoms: Reports nausea and vomiting; Denies constipation and diarrhea Review of Systems General: Reports: 10 or more systems reviewed and unremarkable except in HPI and below Card: Denies: chest pain Resp: Denies: dyspnea GI: Reports: abdominal pain, nausea and vomiting; Denies: diarrhea or constipation PFSH ED PFSH: Medical History History of spleen injury Scoliosis Surgical History No significant past surgical history Physical Exam Const: COMMON NORMALS: alert HENMT: COMMON NORMALS: normocephalic HEAD & SCALP: normocephalic GI: COMMON NORMALS: Soft to palpation AUSCULTATION: Yes normoactive bowel sounds PALPATION: Yes Soft to palpation and Yes Tenderness to palpation present (GI) (Generalized) : COMMON NORMALS: Yes no CVA tenderness BLADDER/KIDNEY EXAM: Yes no CVA tenderness Back/Pelvis: COMMON NORMALS: no CVA tenderness Extremity: COMMON NORMALS: normal to inspection Neuro: SENSORIUM/ORIENTATION: Yes alert Skin: COMMON NORMALS: turgor normal GENERAL SKIN EXAM: turgor normal Course Vital Signs: Vital signs: Vital Signs Temperature 98.4 F 04/19/22 15:50 Pulse Rate 79 08/15/22 15:50 Respiratory Rate 16 04/19/22 15:50 Blood Pressure 129/85 04/19/22 15:50 Pulse Oximetry 97 04/19/22 15:50 Oxygen Delivery Me thod 04/19/22 15:50 MDM - Abdominal Pain Medical Decision Making Patient comes in today for complaints of nausea vomiting for the last 24 hours with inability to get control of at home. Patient recently started back on her citalopram and her primary care office thought she might have had an adverse effect between the use of her citalopram 40 mg and her pantoprazole 40 mg. On exam abdomen soft with some generalized tenderness. Vital signs are normal. Patient appears unwell but not toxic. Differential diagnosis includes but not limited to cholecystitis, cyclic vomiting syndrome, adverse drug effect, electrolyte imbalance. Laboratory values noted a white blood cell count of 10,000, potassium was 3.4, anion gap was 22.4, urinalysis had a trace of white blood cells and will be sent for culture for further evaluation. CT of the abdomen and pelvis noted a urachal cyst, an ovarian dermoid, and some mild cholelithiasis . Reviewed the exam with patient recommended treatment with IV fluids, Zofran, and Ativan. Patient did have improvement in symptoms and was able to tolerate p.o. fluids. Recommend follow-up with surgeon for further evaluation of gallbladder due to recurrent nausea and vomiting, and the urachal cyst that was incidentally found. No signs of severe infection was noted on the exam today requiring a surgical abdomen. Lab Data : 04/19/22 13:18 04/19/22 13:18 Labs/Radiology: Radiology Impressions Abdomen/Pelvis CT 04/19/22 16:14 IMPRESSION: 1. No acute finding 2. 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 3. Small urachal cyst, larger than on prior studies. COMMENTS: Consistent with the [employer] [employer]'s Incidental Findings Committee white paper (J Am Pramod Radiol 2018): Any incidental renal lesion less than 1 cm or classified as too small to characterize, or any incidental cystic renal lesion characterized as simple-appearing, is likely benign. No follow-up imaging is recommended for these lesions per consensus recommendations based on imaging criteria. ADDENDUM: 04/19/22 2648 Addendum: Findings were discussed with DAVID Swenson at 04/19/2022 5:41 PM CDT. Additional impression: Cholelithiasis Laboratory Results WBC 10.4 10^3/uL (4.0-10.0) H 04/19/22 13:18 RBC 4.87 10^6/uL (4.1-5.3) 04/19/22 13:18 Hgb 14.0 g/dL (11.5-15.3) 04/19/22 13:18 Hct 42.9 % (37.0-47.0) 04/19/22 13:18 MCV 88.1 fl (81-99) 04/19/22 13:18 MCH 28.7 pg (28.0-34.0) 04/19/22 13:18 MCHC 32.6 g/dL (30.0-36.0) 04/19/22 13:18 RDW 12.2 % (12.1-15.1) 04/19/22 13:18 Plt Count 400 10^3/cmm (130-400) 04/19/22 13:18 MPV 10.1 fL (7.4-10.4) 04/19/22 13:18 Neut % (Auto) 69.8 % 04/19/22 13:18 Lymph % (Auto) 22.2 % 04/19/22 13:18 Bennett % (Auto) 6.8 % 04/19/22 13:18 Eos % (Auto) 0.4 % 04/19/22 13:18 Baso % (Auto) 0.5 % 04/19/22 13:18 Neut # (Auto) 7.24 10^3/uL (1.8-7.7) 04/19/22 13:18 Lymph # (Auto) 2.3 10^3/uL (0.8-4.8) 04/19/22 13:18 Bennett # (Auto) 0.7 10^3/uL (0.2-0.9) 04/19/22 13:18 Eos # (Auto) 0.0 10^3/uL (0.0-0.8) 04/19/22 13:18 Baso # (Auto) 0.1 10^3/uL (0.0-0.1) 04/19/22 13:18 Nucleated RBC % (auto) 0 % 04/19/22 13:18 Nucleated RBCs # 0.0 /100WBC 04/19/22 13:18 Sodium 140 mmol/L (136-145) 04/19/22 13:18 Potassium 3.4 mmol/L (3.5-5.1) L 04/19/22 13:18 Chloride 98 mmol/L (98-107) 04/19/22 13:18 Carbon Dioxide 23 mmol/L (22-29) 04/19/22 13:18 Anion Gap 22.4 (5-19) H 04/19/22 13:18 BUN 5 mg/dL (6-20) L 04/19/22 13:18 Creatinine 0.7 mg/dL (0.5-0.9) 04/19/22 13:18 GFR Calculation 102.0 mL/min (90-130) 04/19/22 13:18 Glucose 69 mg/dL (65-115) 04/19/22 13:18 Calculated Osmolality 286 mOsm/kg (285-295) 04/19/22 13:18 Calcium 9.5 mg/dL (8.5-10.5) 04/19/22 13:18 Total Bilirubin 0.5 mg/dL (0.15-1.2) 04/19/22 13:18 AST 18 U/L (0-32) 04/19/22 13:18 ALT 13 U/L (0-33) 04/19/22 13:18 Alkaline Phosphatase 49 U/L (35-105) 04/19/22 13:18 Total Protein 7.9 g/dL (6.6-8.7) 04/19/22 13:18 Albumin 4.9 g/dL (3.5-5.2) 04/19/22 13:18 Globulin 3.0 g/dL (1.3-4.6) 04/19/22 13:18 Lipase 13 U/L (13-60) 04/19/22 13:18 HCG, Qual Negative (Negative) 04/19/22 13:18 Urine Color Yellow (Yellow) 04/19/22 15:56 Urine Appearance Clear (CLEAR) 04/19/22 15:56 Urine pH 6 (5-7) 04/19/22 15:56 Ur Specific [place] 1.025 (1.005-1.030) 04/19/22 15:56 Urine Protein Trace (Negative) 04/19/22 15:56 Urine Glucose (UA) Norm (Normal) 04/19/22 15:56 Urine Ketones 3+ (Negative) H 04/19/22 15:56 Urine Blood Neg (Negative) 04/19/22 15:56 Urine Nitrate Negative (Negative) 04/19/22 15:56 Urine Bilirubin Neg (Negative) 04/19/22 15:56 Urine Urobilinogen Norm mg/dL (Negative) 04/19/22 15:56 Ur Leukocyte Esterase Trace (Negative) H 04/19/22 15:56 Urine RBC None /hpf (0-2) 04/19/22 15:56 Urine WBC 10-15 /hpf (0-5) H 04/19/22 15:56 Ur Squamous Epith Cells 0-4 /hpf (0-5) H 04/19/22 15:56 Amorphous Sediment Not Reportable 04/19/22 15:56 Urine Bacteria 1+ /hpf (NONE) H 04/19/22 15:56 Urine Mucus Trace /hpf 04/19/22 15:56 Discharge Plan Discharge Patient Disposition: Home Clinical Impression: Gallbladder anomaly, Urachal cyst Nausea & vomiting Qualifiers: Vomiting type: unspecified Qualified Code(s): R11.2 - Nausea with vomiting, unspecified Condition: Stable Prescriptions: Changed ondansetron 4 mg tablet,disintegrating 4 mg PO Q6H PRN (Reason: Nausea And Vomiting) Qty: 10 0RF No Action pantoprazole 40 mg tablet,delayed release (DR/EC) 40 mg PO QAM Qty: 90 3RF Discharge Orders: Discharge ED (Routine); Ordered 04/19/22 Ordered By: Gucci Vo Discharge Diet: Usual diet Discharge Activity: Increase activity as tolerated Patient Instructions: Abdominal Pain (ED) Activity Restrictions/Additional Instructions: Drink frequent sips of water to avoid dehydration. Clear liquid diet until pain resolves. Use Zofran 4 mg every 6 hours as needed for nausea and vomiting. Follow-up with surgeon regarding abnormalities on CT scan. Return to ER for worsening symptoms such as uncontrolled pain, uncontrolled nausea and vomiting, fever greater than 100.4 with abdominal pain, blood in vomit or stool, or new concerns. Stand Alone Forms: Work/School Release Sign Out Sign Out Data: Patient Sign Out occurred on 04/19/22 at 17:12. Patient's care was discussed, and care was transferred from to Gucci Vo. Coding Level of Care Code ED Vice President Of Instruction for Chg Fwd Exam Detailed
--- NOTE | 2022-04-19 16:14 | CTR_ITS ---
PROCEDURE INFORMATION: Exam: CT Abdomen And Pelvis Without Contrast Exam date and time: 04/19/2022 4:51 PM Age: 26 years old Clinical indication: Abdominal pain; Additional info: Ab pain, nausea/vomiting/hot flashes TECHNIQUE: Imaging protocol: Computed tomography of the abdomen and pelvis without contrast. Radiation optimization: All CT scans at this facility use at least one of these dose optimization techniques: automated exposure control; mA and/or kV adjustment per patient size (includes targeted exams where dose is matched to clinical indication); or iterative reconstruction. COMPARISON: CT abdomen pelvis w con* [id number] 11/07/2021 3:18 PM RADIATION DOSE METRICS: Total DLP (mGy-cm): 368.38 FINDINGS: Limitations: The absence of intravenous contrast lessens the sensitivity of this study for solid organ abnormalities. Lungs: Lung bases are clear. Liver: Hypodensity in the left lobe of the liver adjacent to the falciform ligament likely represents some focal fatty change. Gallbladder and bile ducts: There are multiple low-density gallstones within the gallbladder. Gallbladder is not distended. Pancreas: The pancreas is normal. Spleen: The spleen is normal. Adrenal glands: The adrenal glands are normal. Kidneys and ureters: The kidneys are normal. There is no evidence of hydronephrosis. There is no evidence of renal or ureteral calcifications. Stomach and bowel: There is a 1 cm sized oval fatty mass in the left adnexal region which could represent small ovarian dermoid versus small lipoma of the adjacent sigmoid colon. This is not significantly changed from 11/07/2021, but is not seen on 05/28/2021. There is no evidence of colitis/diverticulitis. There is no evidence of intestinal obstruction. Appendix: A normal appendix is identified. Intraperitoneal space: There is no evidence of free intraperitoneal fluid. Vasculature: There is no evidence of an abdominal aortic aneurysm. Lymph nodes: There is no evidence of lymphadenopathy. Urinary bladder: Unremarkable as visualized. Reproductive: See Stomach and bowel finding. Bones/joints: There is mild lumbar scoliosis concave to the right. Soft tissues: Unremarkable. Other findings: There is 1.5 cm sized urachal cyst which is larger than on previous examinations. On 05/28/2021 it measured approximately [address]/CT abdomen pelvis con [id number] IMPRESSION: 1. No acute finding 2. 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 3. Small urachal cyst, larger than on prior studies. COMMENTS: Consistent with the [place] [employer]'s Incidental Findings Committee white paper (J Am Pramod Radiol 2018): Any incidental renal lesion less than 1 cm or classified as too small to characterize, or any incidental cystic renal lesion characterized as simple-appearing, is likely benign. No follow-up imaging is recommended for these lesions per consensus recommendations based on imaging criteria.
[2022-04-19 16:35] LABS: Add Urine Microscopic? YES; Bilirubin Urine Neg (Negative); Blood Urine Neg (Negative); Glucose Urine UA Norm (Normal); Ketones Urine 3+ (Negative); Leukocyte Esterase Urine Trace (Negative); Nitrate Urine Negative (Negative); Protein Urine Trace (Negative); Specific Gravity, Urine 1.025 (1.005-1.030); Urine Appearance Clear (CLEAR); Urine Color Yellow (Yellow); Urobilinogen Urine Norm (Negative); pH Urine 6 (5-7)
[2022-04-19 16:36] LABS: Add Urine Culture? No; Bacteria Urine 1+ /hpf; Mucus Urine TRACE /hpf; Squamous Epithelial Cell Urine 0-4 /hpf (0-5)
[2022-04-19] MEDS: LORazepam 1 mg Tablet PO (16:41)
[2022-04-19] MEDS: sodium chloride 0.9% 1,000 ML 999 ML IV (17:29)
[2022-04-19] MEDS: ondansetron 2 mg/ML SDV 2 mL 4 MG IVP (17:33)
--- NOTE | 2022-04-20 13:50 | DCPLANNER ---
Addendum entered by Jacklyn Bedoya 05/06/22 08:16: Patient had an appointment scheduled for 04.27.[address] Durham at general surgery - patient did attend appointment. Original Note: manager food beverage had message to schedule a follow up appointment for patient with general surgery. manager food beverage sent patients information to the front office of general surgery. Patients information will be printed and reviewed. Clinic will call patient with appointment information.
== END 2022-04-19 18:44 | disposition home or self-care (01) ==
PROVIDERS: Emergency Medicine; Emergency Provider Nurse Practitioner Family
DX: R11.2 Nausea with vomiting, unspecified (principal); Q64.4 Malformation of urachus; Q44.1 Other congenital malformations of gallbladder
CPT/HCPCS: 36415; 74176; 80053; 81001; 83690; 84703; 85025; 96361; 96374; 99285; J2405; J7030

== ENCOUNTER 2022-04-25 13:55 | Emergency (ER) | payer OTHER, SELFPAY ==
[2022-04-25 14:00] VITALS: BP 116/83; PULSE 83; RESP 16; TEMP 36.7; O2SAT 99; BMI 21.9
[2022-04-25 14:17] VITALS: BP 108/70; PULSE 59; RESP 16; O2SAT 99
--- NOTE | 2022-04-25 14:32 | XRR_ITS ---
PROCEDURE INFORMATION: Exam: XR Chest Exam date and time: 04/25/2022 3:07 PM Age: 26 years old Clinical indication: Pain; Chest pressure; Additional info: Chest pain TECHNIQUE: Imaging protocol: Radiologic exam of the chest. Views: 1 view. COMPARISON: CT chest abd pel w con* 05/28/2021 9:35 AM FINDINGS: Lungs: Unremarkable. No consolidation. Pleural spaces: Unremarkable. No pleural effusion. No pneumothorax. Heart/Mediastinum: Unremarkable. No cardiomegaly. Bones/joints: Mild scoliosis of the thoracolumbar spine. Visualized osseous structures are intact. XR/XR chest 1V portable [id number] IMPRESSION: No acute findings.
--- NOTE | 2022-04-25 14:32 | ECG_ITS ---
[facility] Test Date: 2022-04-25 Pat Name: Patricio Lee Department: Room: Gender: Female Named Account Executive: : 1995 Requested By: Tanmay Joseph Order Number: [id number] Iftikhar MD: Amena Esquivel M.D. Measurements Intervals [place] Rate: 57 P: 0 AR: 124 QRS: 29 QRSD: 92 T: 31 QT: 418 QTc: 408 Interpretive Statements SINUS BRADYCARDIA WITH SINUS ARRHYTHMIA No previous ECG available for comparison Electronically Signed On 04-26-2022 7:58:27 CDT by Amena Esquivel M.D. [id number]
[2022-04-25] MEDS: lidocaine 2% viscous 15 ML, aluminum-mag hydrox-simethicon 30 ML, sucralfate oral liq 1 GM PO (14:41)
[2022-04-25] MEDS: acetaminophen 325 mg Tablet 650 MG PO (14:44)
--- NOTE | 2022-04-25 14:47 | ED_ITS ---
HPI - Chest Pain General: Chief Complaint: Chest Pain Stated Complaint: Extreme pain Time Seen by Provider: 04/25/22 14:09 History of Present Illness: 26-year-old female presenting today with epigastric abdominal pain. As well as chest pain. Patient notes that she has been told she has gallbladder sludge. She has had intermittent severe pain. Pain appears to be worse in the morning. Somewhat relieved during the day. Has a referral for general surgery. Was having difficulty getting [facility]. She also notes midsternal chest pain. Pain is nonradiating. Not im proved or worsened by anything. Has been constant. Patient notes a history of gastric ulcers. For which she is currently taking pantoprazole she states despite taking this medicine her symptoms or not improving. Review of Systems General: Reports: 10 or more systems reviewed and unremarkable except in HPI and below PFSH ED PFSH: Medical History History of spleen injury Scoliosis Surgical History No significant past surgical history Female Reproductive History: Date of last menstrual period: 12/22/21 Physical Exam Const: COMMON NORMALS: no acute distress, patient oriented x3 and alert GENERAL APPEARANCE: cooperative ORIENTATION/CONSCIOUSNESS: Yes awake, Yes oriented to person, Yes oriented to place and Yes oriented to time HENMT: COMMON NORMALS: normocephalic, atraumatic, external ears normal, Normal external nose present and moist oral mucous membranes HEAD & SCALP: normal to inspection, normocephalic and atraumatic NOSE: Normal external nose present GENERAL EAR: hearing grossly impaired EXTERNAL EAR: Yes external ears normal Eye: COMMON NORMALS: Equal, round and reactive pupils present, EOMs intact bilaterally, conjunctivae normal and no scleral icterus GENERAL EYE: appearance normal, both eyes and all related structures EYELID: eyelids normal CONJUNCTIVA: Yes conjunctivae normal SCLERA: sclerae normal PUPIL: Yes Equal, round and reactive pupils present Neck/C-Spine: COMMON NORMALS: full ROM, supple and no JVD GENERAL: Yes normal visual inspection Lymph: LYMPHATIC: no lymphadenopathy noted and no lymphedema noted Chest: COMMONS NORMALS: normal inspection of the chest Resp: COMMON NORMALS: normal respiratory effort, No retractions and No use of accessory muscles Cardio: COMMON NORMALS: no JVD, regular rate and regular rhythm RATE: regular rate RHYTHM: regular rhythm GI: COMMON NORMALS: Normal to inspection, nondistended, normoactive bowel sounds present : COMMON NORMALS: Yes no CVA tenderness BLADDER/KIDNEY EXAM: Yes no CVA tenderness Back/Pelvis: COMMON NORMALS: no CVA tenderness and thoracic and lumbar spine normal to inspection Extremity: COMMON NORMALS: normal to inspection, full ROM and capillary refill normal GENERAL: Yes normal exam except as noted Neuro: COMMON NORMALS: patient oriented x3, CN's II-XII intact bilaterally, moves all extremities, no focal motor deficits, no sensory deficits noted and gait normal SENSORIUM/ORIENTATION: Yes alert, Yes oriented to person, Yes oriented to place and Yes oriented to time Psych: COMMON NORMALS: mental status grossly normal, Normal thought process present, cooperative and normal affect THOUGHT PROCESS: Normal thought p rocess present Skin: COMMON NORMALS: no rashes or lesions noted and no wounds GENERAL SKIN EXAM: no rashes or lesions noted Course Vital Signs: Vital signs: Vital Signs Temperature 98.1 F 04/25/22 14:00 Pulse Rate 60 04/25/22 15:58 Respiratory Rate 16 04/25/22 15:58 Blood Pressure 108/70 04/25/22 15:58 Pulse Oximetry 97 04/25/22 15:58 Oxygen Delivery Me thod 04/25/22 15:58 MDM - Chest Pain Medical Decision Making 26-year-old female presenting with chest pain abdominal pain. EKG without any significant abnormality. CMP is unremarkable. CBC is unremarkable. D-dimer is within normal range. Low suspicion for pulm embolism. Patient's troponin within normal range. Patient with epigastric abdominal pain. Recent CT without significant abnormality. Suspect ulcers versus gastritis. Will start patient on Carafate for the same. Patient did have some improvement after GI cocktail. Recommended outpatient halo back to pylori testing. Return precautions were given. Recommended routine follow-up with surgery on Tuesday as scheduled. Lab Data : 04/25/22 15:07 04/25/22 15:07 Radiology Impressions Chest X-Ray 04/25/22 14:32 IMPRESSION: No acute findings. Laboratory Results WBC 9.5 10^3/uL (4.0-10.0) 04/25/22 15:07 RBC 4.16 10^6/uL (4.1-5.3) 04/25/22 15:07 Hgb 12.1 g/dL (11.5-15.3) 04/25/22 15:07 Hct 37.6 % (37.0-47.0) 04/25/22 15:07 MCV 90.4 fl (81-99) 04/25/22 15:07 MCH 29.1 pg (28.0-34.0) 04/25/22 15:07 MCHC 32.2 g/dL (30.0-36.0) 04/25/22 15:07 RDW 12.9 % (12.1-15.1) 04/25/22 15:07 Plt Count 289 10^3/cmm (130-400) 04/25/22 15:07 MPV 10.4 fL (7.4-10.4) 04/25/22 15:07 Neut % (Auto) 68.8 % 04/25/22 15:07 Lymph % (Auto) 20.2 % 04/25/22 15:07 Beadle % (Auto) 6.5 % 04/25/22 15:07 Eos % (Auto) 3.6 % 04/25/22 15:07 Baso % (Auto) 0.7 % 04/25/22 15:07 Neut # (Auto) 6.54 10^3/uL (1.8-7.7) 04/25/22 15:07 Lymph # (Auto) 1.9 10^3/uL (0.8-4.8) 04/25/22 15:07 Beadle # (Auto) 0.6 10^3/uL (0.2-0.9) 04/25/22 15:07 Eos # (Auto) 0.3 10^3/uL (0.0-0.8) 04/25/22 15:07 Baso # (Auto) 0.1 10^3/uL (0.0-0.1) 04/25/22 15:07 Nucleated RBC % (auto) 0 % 04/25/22 15:07 Nucleated RBCs # 0.0 /100WBC 04/25/22 15:07 D-Dimer 0.29 ug/mIFEU (0-0.59) 04/25/22 15:37 Sodium 140 mmol/L (136-145) 04/25/22 15:07 Potassium 4.2 mmol/L (3.5-5.1) 04/25/22 15:07 Chloride 104 mmol/L (98-107) 04/25/22 15:07 Carbon Dioxide 27 mmol/L (22-29) 04/25/22 15:07 Anion Gap 13.2 (5-19) 04/25/22 15:07 BUN 4 mg/dL (6-20) L 04/25/22 15:07 Creatinine 0.8 mg/dL (0.5-0.9) 04/25/22 15:07 GFR Calculation 87.4 mL/min (90-130) L 04/25/22 15:07 Glucose 92 mg/dL (65-115) 04/25/22 15:07 Calculated Osmolality 287 mOsm/kg (285-295) 04/25/22 15:07 Calcium 9.1 mg/dL (8.5-10.5) 04/25/22 15:07 Total Bilirubin 0.4 mg/dL (0.15-1.2) 04/25/22 15:07 AST 16 U/L (0-32) 04/25/22 15:07 ALT 15 U/L (0-33) 04/25/22 15:07 Alkaline Phosphatase 41 U/L (35-105) 04/25/22 15:07 Troponin T Gen 5 ng/L 6 ng/L (0-10) 04/25/22 15:07 Total Protein 6.3 g/dL (6.6-8.7) L 04/25/22 15:07 Albumin 4.2 g/dL (3.5-5.2) 04/25/22 15:07 Globulin 2.1 g/dL (1.3-4.6) 04/25/22 15:07 Discharge Plan Discharge Patient Disposition: Home Clinical Impression: Gastritis Condition: Stable Prescriptions: New Carafate 100 mg/mL suspension 1 g PO TID 28 Days Qty: 840 0RF No Action pantoprazole 40 mg tablet,delayed release (DR/EC) 40 mg PO BID Qty: 90 3RF ondansetron HCl 4 mg tablet 4 mg PO Q8H PRN (Reason: nausea and vomiting) Qty: 30 0RF Midol 500-25 mg Tablet 1 tab PO Q4H PRN (Reason: Pain) Discharge Orders: Discharge ED (Routine); Ordered 04/25/22 Ordered By: Tanmay Joseph Discharge Diet: Advance as tolerated Discharge Activity: Resume usual activity Patient Instructions: Gastritis (ED) Coding Level of Care Code ED Research Home Economist for Chg Fwd Exam Comprehensive
[2022-04-25 15:12] LABS: Basophils # 0.1 10^3/uL (0.0-0.1); Basophils % 0.7 %; Eosinophils # 0.3 10^3/uL (0.0-0.8); Eosinophils % 3.6 %; Hematocrit 37.6 % (37.0-47.0); Hemoglobin 12.1 g/dL (11.5-15.3); Lymphocytes # 1.9 10^3/uL (0.8-4.8); Lymphocytes % 20.2 %; Mean Corpuscular HGB Conc 32.2 g/dL (30.0-36.0); Mean Corpuscular Hemoglobin 29.1 pg (28.0-34.0); Mean Corpuscular Volume 90.4 fl (81-99); Mean Platelet Volume 10.4 fL (7.4-10.4); Monocytes # 0.6 10^3/uL (0.2-0.9); Monocytes % 6.5 %; Neutrophils # 6.54 10^3/uL (1.8-7.7); Neutrophils % 68.8 %; Nucleated Red Blood Cells % 0 %; Platelet Count 289 10^3/cmm (130-400); Red Blood Count 4.16 10^6/uL (4.1-5.3); Red Cell Distribution Width 12.9 % (12.1-15.1); White Blood Count 9.5 10^3/uL (4.0-10.0)
[2022-04-25 15:30] LABS: Alanine Aminotransferase 15 U/L (0-33); Albumin Level 4.2 g/dL (3.5-5.2); Alkaline Phosphatase 41 U/L (35-105); Anion Gap 13.2 (5-19); Aspartate Amino Transferase 16 U/L (0-32); Blood Urea Nitrogen 4 mg/dL (6-20); Calcium 9.1 mg/dL (8.5-10.5); Carbon Dioxide 27 mmol/L (22-29); Chloride 104 mmol/L (98-107); Globulin 2.1 g/dL (1.3-4.6); Glomerular Filtration Rate 87.4 mL/min (90-130); Glucose 92 mg/dL (65-115); Osmolality Calculated 287 mOsm/kg (285-295); Potassium 4.2 mmol/L (3.5-5.1); Sodium 140 mmol/L (136-145); Total Bilirubin 0.4 mg/dL (0.15-1.2); Total Protein 6.3 g/dL (6.6-8.7)
[2022-04-25 15:42] LABS: Troponin T (5th) Once 6 ng/L (0-10)
[2022-04-25 15:58] VITALS: BP 108/70; PULSE 60; RESP 16; O2SAT 97
[2022-04-25 16:09] LABS: D Dimer 0.29 ug/mIFEU (0-0.59)
[2022-04-25 16:36] VITALS: BP 112/69; PULSE 58; RESP 16; O2SAT 99
== END 2022-04-25 16:37 | disposition home or self-care (01) ==
PROVIDERS: Emergency Provider Emergency Medicine
DX: K29.70 Gastritis, unspecified, without bleeding (principal)
CPT/HCPCS: 71045; 80053; 84484; 85025; 85378; 93005; 99285

== ENCOUNTER → 2022-04-27 10:28 | Outpatient (BNVA) | payer OTHER, SELFPAY | PROVIDERS: Visit Provider Surgery | DX: K29.70 Gastritis, unspecified, without bleeding (principal); K80.20 Calculus of gallbladder without cholecystitis without obstruction | CPT/HCPCS: 99203 ==

== ENCOUNTER 2022-04-30 12:30 | Emergency (ER) | payer OTHER, SELFPAY ==
[2022-04-30 12:45] VITALS: BP 107/68; PULSE 75; RESP 14; TEMP 36.7; O2SAT 100; BMI 22.4
--- NOTE | 2022-04-30 13:00 | ED_ITS ---
HPI - Abdominal Pain General: Chief Complaint: Abdominal Pain Stated Complaint: chest and abd pain Time Seen by Provider: 04/30/22 13:00 History of Present Illness: Ms. Lee is a 26-year-old lady with history of known cholelithiasis who presents to the emergency department due to abdominal and epigastric pain. She reports symptoms have been longstanding however have been more constant as opposed to intermittent for about 2 weeks. Intensity symptoms is moderate to severe. Denies association with any particular activity. Said some subjective fevers and chills. Also endorses nausea. She has been taking Zofran, Protonix, Carafate, and Motrin at home without significant relief. She is scheduled for cholecystectomy on May 20. Onset (ago): week(s) Pain Consistency: constant Severity: severe Exacerbating factors: nothing Relieving factors: nothing Context: other Related Data: Date of Last Menstrual Period: 12/22/21 Review of Systems General: Reports: 10 or more systems reviewed and unremarkable except in HPI and below PFSH ED PFSH: Medical History Anxiety Depression History of spleen injury Scoliosis Surgical History No significant past surgical history Family History Other Diabetes Social History Smoking and tobacco status: former smoker Female Reproductive History: Date of last menstrual period: 12/22/21 Physical Exam Const: COMMON NORMALS: alert GENERAL APPEARANCE: cooperative and well deve ivania HENMT: COMMON NORMALS: normocephalic and atraumatic HEAD & SCALP: normocephalic and atraumatic Eye: COMMON NORMALS: conjunctivae normal CONJUNCTIVA: Yes conjunctivae normal SCLERA: sclerae normal Neck/C-Spine: COMMON NORMALS: supple GENERAL: Yes trachea midline Resp: COMMON NORMALS: normal respiratory effort EFFORT & INSPECTION: Yes able to speak in complete sentences Cardio: COMMON NORMALS: regular rate and regular rhythm RATE: regular rate RHYTHM: regular rhythm GI: COMMON NORMALS: Soft to palpation PALPATION: Yes Soft to palpation, Yes Tenderness to palpation present (GI) Details: RUQ and other (Epigastric), No Guarding due to palpation present (GI) and No Rigid due to palpation Extremity: GENERAL: Yes normal exam except as noted and No edema Neuro: COMMON NORMALS: moves all extremities SENSORIUM/ORIENTATION: Yes alert and No Orientation impaired Psych: COMMON NORMALS: mental status grossly normal and Normal thought process present THOUGHT PROCESS: Normal thought process present Course ED course: - Patient was seen and evaluated by me at bedside - Patient placed on cardiac monitors, IV access obtained - Initial evaluation notable for exam as above - Labs and xrays personally interpreted by me - Fluids, analgesia, and antiemetic given - Labs notable for no leukocytosis, no other significant abnormality - Imaging notable for no evidence of cholecystitis - Upon serial reexamination after treatment the patient was mildly improved - Based on patient history, evaluation, and testing as interpreted the most likely cause of the patient's condition is symptomatic cholelithiasis -I did contact the patient's surgeon regarding possibility of moving surgery closer however unfortunately he is more than booked fully. I did explain cur rent situation to the patient, she expressed frustration as her pain is worsening however based on ED evaluation there is no emergent indication for cholecystectomy or admission at this time. - The results of ED evaluation were discussed with the patient including prescriptions and/or symptomatic cares (if applicable) including appropriate and responsible use, followup plan, and return precautions. The patient verbalized understanding and felt safe for discharge. - Patient discharged in satisfactory condition. Note: Click bubbles or prepopulated coto in note writing are used for assistance with data collection and billing and are inherently more limited than narrative and other text portions of this note. Please use narrative for additional clinical history and defer to narrative/free test for any case of contradictory information. If information appears in only free text or click bubble it should be considered present or absent as reported. Please contact note remote mortgage underwriter for clarifications of clinical information or contradictory information. MDM is a brief summary, contradictory or erroneous seeming information should be clarified and full note should be reviewed. Vital Signs: Vital signs: Vital Signs Temperature 98.1 F 04/30/22 12:45 Pulse Rate 78 04/30/22 16:35 Respiratory Rate 16 04/30/22 16:35 Blood Pressure 138/77 04/30/22 16:35 Pulse Oximetry 98 04/30/22 16:35 Oxygen Delivery Ny thod 04/30/22 12:45 MDM - Abdominal Pain Medical Decision Making 27-year-old lady with known cholelithiasis and planned outpatient cholec ystectomy presenting to the emergency department for worsening pain. ED evaluation negative for acute cholecystitis. Satisfactory for outpatient management with analgesia prescribed. Medical Records I reviewed the patient's medical records. Lab Data I reviewed the patient's lab results. : 04/30/22 13:27 04/30/22 13:27 Labs/Radiology: Radiology Impressions Abdomen Ultrasound 04/30/22 14:17 IMPRESSION: 1. Cholelithiasis without acute cholecystitis. 2. Normal common bile duct. Laboratory Results WBC 7.7 10^3/uL (4.0-10.0) 04/30/22 13: RBC 4.14 10^6/uL (4.1-5.3) 04/30/22 13: Hgb 12.0 g/dL (11.5-15.3) 04/30/22 13:27 Hct 37.3 % (37.0-47.0) 04/30/22 13:27 MCV 90.1 fl (81-99) 04/30/22 13:27 MCH 29.0 pg (28.0-34.0) 04/30/22 13:27 MCHC 32.2 g/dL (30.0-36.0) 04/30/22 13:27 RDW 12.9 % (12.1-15.1) 04/30/22 13:27 Plt Count 311 10^3/cmm (130-400) 04/30/22 13: MPV 10.4 fL (7.4-10.4) 04/30/22 13:27 Neut % (Auto) 66.9 % 04/30/22 13:27 Lymph % (Auto) 20.1 % 04/30/22 13:27 [place] % (Auto) 9.2 % 04/30/22 13:27 Eos % (Auto) 3.0 % 04/30/22 13:27 Baso % (Auto) 0.5 % 04/30/22 13:27 Neut # (Auto) 5.12 10^3/uL (1.8-7.7) 04/30/22 13:27 Lymph # (Auto) 1.5 10^3/uL (0.8-4.8) 04/30/22 13:27 [place] # (Auto) 0.7 10^3/uL (0.2-0.9) 04/30/22 13:27 Eos # (Auto) 0.2 10^3/uL (0.0-0.8) 04/30/22 13:27 Baso # (Auto) 0.0 10^3/uL (0.0-0.1) 04/30/22 13:27 Nucleated RBC % (auto) 0 % 04/30/22 13:27 Nucleated RBCs # 0.0 /100WBC 04/30/22 13:27 Sodium 142 mmol/L (136-145) 04/30/22 13:27 Potassium 4.8 mmol/L (3.5-5.1) 04/30/22 13:27 Chloride 106 mmol/L (98-107) 04/30/22 13:27 Carbon Dioxide 27 mmol/L (22-29) 04/30/22 13:27 Anion Gap 13.8 (5-19) 04/30/22 13:27 BUN 6 mg/dL (6-20) 04/30/22 13:27 Creatinine 0.7 mg/dL (0.5-0.9) 04/30/22 13:27 GFR Calculation 102.0 mL/min (90-130) 04/30/22 13:27 Glucose 93 mg/dL (65-115) 04/30/22 13:27 Calculated Osmolality 291 mOsm/kg (285-295) 04/30/22 13:27 Calcium 8.8 mg/dL (8.5-10.5) 04/30/22 13:27 Total Bilirubin 0.3 mg/dL (0.15-1.2) 04/30/22 13:27 AST 18 U/L (0-32) 04/30/22 13:27 ALT 16 U/L (0-33) 04/30/22 13:27 Alkaline Phosphatase 35 U/L (35-105) 04/30/22 13:27 Total Protein 6.2 g/dL (6.6-8.7) L 04/30/22 13:27 Albumin 3.8 g/dL (3.5-5.2) 04/30/22 13:27 Globulin 2.4 g/dL (1.3-4.6) 04/30/22 13:27 Lipase 14 U/L (13-60) 04/30/22 13:27 HCG, Qual Negative (Negative) 04/30/22 13:30 Discharge Plan Discharge Patient Disposition: Home Clinical Impression: Symptomatic cholelithiasis Condition: Stable Prescriptions: New ondansetron 4 mg tablet,disintegrating 4 mg PO Q8H PRN (Reason: nausea and vomiting) Qty: 15 0RF oxycodone 5 mg tablet 5 mg PO Q4H PRN (Reason: pain) Qty: 20 0RF No Action pantoprazole 40 mg tablet,delayed release (DR/EC) 40 mg PO BID Qty: 90 3RF ondansetron HCl 4 mg tablet 4 mg PO Q8H PRN (Reason: nausea and vomiting) Qty: 30 0RF Advil 200 mg Tablet 200 mg PO Q6H PRN (Reason: Pain) Midol 500-25 mg Tablet 1 tab PO Q4H PRN (Reason: Pain) sucralfate [Carafate] 100 mg/mL suspension 1 g PO TID 28 Days Qty: 840 0RF Discharge Orders: Discharge ED (Routine); Ordered 04/30/22 Ordered By: Zeus Mccullough Discharge Diet: Low Fat Discharge Activity: Increase activity as tolerated Patient Instructions: Biliary Colic (ED), Gallstones (ED), Opioid Safety Activity Restrictions/Additional Instructions: Thank you for visiting the emergency department. You were seen and evaluated for continued abdominal pain. The most likely cause of your symptoms is symptomatic cholelithiasis. I recommend continuing outpatient management. I will prescribe analgesia. Please use this responsibly as discussed. Please return to the emergency department for worsening symptoms or anything else that you are concerned about and feel needs emergency department evaluation. Coding Level of Care Code ED [facility] Recruiting Coordinator for Brian Fwd Exam Comprehensive
[2022-04-30 13:28] VITALS: RESP 18; O2SAT 98
[2022-04-30] MEDS: lactated ringers 1,000 ML 999 ML IV (13:28)
[2022-04-30] MEDS: morphine 4 mg/mL SDV 1 mL IVP ×2 (13:28→16:26)
[2022-04-30] MEDS: ondansetron 2 mg/ML SDV 2 mL 4 MG IVP (13:28)
[2022-04-30 13:37] LABS: HCG Qualitative Urine. Negative (Negative)
[2022-04-30 13:45] LABS: Basophils % 0.5 %; Eosinophils # 0.2 10^3/uL (0.0-0.8); Hematocrit 37.3 % (37.0-47.0); Lymphocytes # 1.5 10^3/uL (0.8-4.8); Lymphocytes % 20.1 %; Mean Corpuscular HGB Conc 32.2 g/dL (30.0-36.0); Mean Corpuscular Volume 90.1 fl (81-99); Mean Platelet Volume 10.4 fL (7.4-10.4); Monocytes # 0.7 10^3/uL (0.2-0.9); Monocytes % 9.2 %; Neutrophils # 5.12 10^3/uL (1.8-7.7); Neutrophils % 66.9 %; Nucleated Red Blood Cells % 0 %; Platelet Count 311 10^3/cmm (130-400); Red Blood Count 4.14 10^6/uL (4.1-5.3); Red Cell Distribution Width 12.9 % (12.1-15.1); White Blood Count 7.7 10^3/uL (4.0-10.0)
[2022-04-30 14:13] LABS: Alanine Aminotransferase 16 U/L (0-33); Albumin Level 3.8 g/dL (3.5-5.2); Alkaline Phosphatase 35 U/L (35-105); Aspartate Amino Transferase 18 U/L (0-32); Blood Urea Nitrogen 6 mg/dL (6-20); Calcium 8.8 mg/dL (8.5-10.5); Carbon Dioxide 27 mmol/L (22-29); Chloride 106 mmol/L (98-107); Globulin 2.4 g/dL (1.3-4.6); Glucose 93 mg/dL (65-115); Lipase 14 U/L (13-60); Osmolality Calculated 291 mOsm/kg (285-295); Sodium 142 mmol/L (136-145); Total Bilirubin 0.3 mg/dL (0.15-1.2); Total Protein 6.2 g/dL (6.6-8.7)
--- NOTE | 2022-04-30 14:17 | US_ITS ---
WS: [id number] RIGHT UPPER QUADRANT ULTRASOUND HISTORY: RUQ, biliary, increased constant pain COMPARISON: CT 04/19/2022 Liver: 13.7 cm in length. Normal size liver. No bile duct dilatation or mass. Portal Vein: Normal hepatopetal flow with monophasic waveform. Gallbladder: Normally distended with several small stones. No pericholecystic fluid or gallbladder wa ll thickening. CBD: 0.4 cm Pancreas: Normal size and echogenicity. Right kidney: 10.0 cm in length. Normal size and echogenicity. No hydronephrosis or mass. Aorta and IVC: Unremarkable abdominal aorta and IVC. No ascites. US/US abdomen limited 36056 IMPRESSION: 1. Cholelithiasis without acute cholecystitis. 2. Normal common bile duct.
[2022-04-30 14:20] LABS: Anion Gap 13.8 (5-19); Potassium 4.8 mmol/L (3.5-5.1)
[2022-04-30 16:26] VITALS: RESP 18; O2SAT 98
[2022-04-30 16:35] VITALS: BP 138/77; PULSE 78; RESP 16; O2SAT 98
== END 2022-04-30 16:36 | disposition home or self-care (01) ==
PROVIDERS: Emergency Provider Emergency Medicine
DX: K80.20 Calculus of gallbladder without cholecystitis without obstruction (principal); Z87.891 Personal history of nicotine dependence
CPT/HCPCS: 76705; 80053; 81025; 83690; 85025; 96361; 96374; 96375; 96376; 99285; J2270; J2405

== ENCOUNTER 2022-05-20 06:23 | Day surgery (SDC) | payer OTHER, SELFPAY ==
[2022-05-19 13:53] VITALS: BMI 22.4
[2022-05-20] VITALS (8 sets, daily range): BP systolic 112–149; BP diastolic 63–86; PULSE 68–108; RESP 17–22; TEMP 36.4–36.8; O2SAT 97–100
[2022-05-20 06:57] LABS: OR HCG Qualitative Urine Negative (Negative)
[2022-05-20] MEDS: sodium chloride 0.9% 1,000 ML 30 ML IV (07:09)
--- NOTE | 2022-05-20 07:25 | ANES.PREANE2 ---
Pre-Anesthetic Assessment Height/Weight: Height 1.7 m Weight 64.864 kg Temp Pulse Resp BP Pulse Ox O2 Del Method 98.2 F 68 17 112/63 99 05/20/22 06:46 05/20/22 06:46 05/20/22 06:46 05/20/22 06:46 05/20/22 06:46 05/20/22 06:51 Preop Diagnosis: Symptomatic choleltihiasis Operation Date: 05/20/22 08:00 Proposed Procedures p Laparoscopic Cholecystectomy 35575,K80.20(Not Applicable) - Sergio Durham, DO Was Beta Riya taken within 24 hours: N/A Was Clonidine taken within 24 hours: N/A Last intake: Intake Last Liquid Date 05/19/22 Last Liquid Time 22:00 Last Solid Date 05/19/22 Last Solid Time 13:00 Social Daily THC Exam alert, oriented x 3, clear to auscultation bilaterally and regular rate & rhythm Airway Submandibular: within normal limits Cervical ROM: within normal limits Mallampati: Class II Dentition: full History/ROS No significant history except as noted and No significant complaints Pulmonary None reported CV/HEM None reported None reported Hepatic None reported GI Gastroesophageal Reflux Disease treated Metabolic None reported Musc/skel None reported Neuropsych None reported Anesthetic Plan ASA status: 2 Anesthesia: Anesthesia Evaluation and General Risk of > 500 ml blood loss (7ml/kg in children): No Medications/Allergies Home Medications Medication Instructions Recorded Confirmed Last Taken Type pantoprazole 40 mg tablet,delayed 40 mg PO BID #90 tabs 04/21/22 05/20/22 05/20/22 05:00 Rx release acetaminophen-pamabrom 500 mg-25 1 tab PO Q4H PRN Pain 04/25/22 05/19/22 Unknown History mg tablet (Midol) sucralfate 100 mg/mL oral 1 g (10 mL) PO TID 4 weeks #840 mL 04/25/22 05/20/22 05/19/22 22:00 Rx suspension (Carafate) ibuprofen 200 mg tablet (Advil) 200 mg PO Q6H PRN Pain 04/30/22 05/20/22 05/19/22 02:20 History ondansetron 4 mg disintegrating 4 mg PO Q8H PRN nausea and 04/30/22 05/19/22 Unknown Rx tablet vomiting #15 tabs oxycodone 5 mg tablet 5 mg PO Q4H PRN pain #20 tabs 04/30/22 05/20/22 05/20/22 05:00 Rx Allergies Allergy/AdvReac Type Severity Reaction Status Date / Time No Known Allergies Allergy Verified 05/20/22 06:50 Current Medications Generic Name Dose Route Start Last Admin Trade Name Freq PRN Reason Stop Dose Admin Sodium Chloride 1,000 mls @ 30 mls/hr 05/20/22 06:45 05/20/22 07:09 Sodium Chloride 0.9% IV 05/21/22 06:44 30 mls/hr .Q24H LISA Administration PFSH Anesthesia Medical History Anxiety Depression History of spleen injury Scoliosis Surgical History No significant past surgical history Family History Other Diabetes Social History Smoking and tobacco status: former smoker Female Reproductive History Date of last menstrual period: 12/22/21 Data Anesthesia Cardiac Studies: No Data to Display
--- NOTE | 2022-05-20 07:46 | W.PM.OPSUD ---
Surgery/Procedure H&P Update DATE OF PROCEDURE: May 20, 2022 DATE H&P PERFORMED: 04/27/22 PREOP DIAGNOSIS: Symptomatic choleltihiasis PLANNED PROCEDURE: Operation Date: 05/20/22 08:00 Proposed Procedures p Laparoscopic Cholecystectomy 06491,K80.20(Not Applicable) - Sergio Durham DO
[2022-05-20] MEDS: ceFAZolin 2,000 MG in sodium chloride 0.9% (plus) 50 ML 100 MG IV (08:20)
--- NOTE | 2022-05-20 08:51 | P.OP_ITS ---
Operative Report Date of procedure: May 20, 2022 Pre-op diagnosis: Preop Diagnosis Symptomatic choleltihiasis Post-op diagnosis: same Procedure done: Laparoscopic cholecystectomy Specimens removed/disposition: Gallbladder Surgeon: Dr. Sergio Durham DO Anesthesia: General Estimated blood loss (mL): 5 Complications: None apparent Brief History: This is a very laparoscopically cystectomy was indicated. The risks and benefits were explained and documented. 27-year-old female who presented office with right upper quadrant pain. Procedure: Patient was wheeled into the operative room and placed on the OR table in a supine position. Abdomen was inspected prepped and draped in usual sterile fashion. Time-out was performed and all present were in agreement. A 15 blade scalp was used to make a stab incision in the left upper quadrant and intra- abdominal insufflation was achieved using a Veress needle. After localizing the tissue incisions were made and a 5 millimeter trocar was placed into the umbilicus as well as 2 in the right upper quadrant. A 12 millimeter trocar was placed in the epigastrium. Gallbladder was grasped and elevated. The triangle of Calot was carefully dissected using blunt dissection and electrocautery until the triangle of Calot clearly identified. The cystic duct was clipped proximally and double clipped distally. The duct was then ligated proximally. The cystic artery was doubly clipped and ligated. The gallbladder was then removed from the liver bed using electrocautery. The gallbladder was removed from the abdomen using an Endo-Catch bag through the epigastric incision. The liver bed was inspected and no bleeding was seen. The abdomen was irrigated and suctioned. All ports removed. Skin was washed and dried. Incisions were clos ed with 3-0 and 4-O Vicryl in a subcuticular interrupted fashion. Skin glue was applied. Patient tolerated the procedure well.
--- NOTE | 2022-05-20 09:11 | SUR.PHASEI ---
0902 PT TO PACU 5 PT AWAKES TO VOICE, C/O OF PAIN OF 9/10 TO ABDOMEN, SEE PAIN MED GIVEN AT BEDSIDE BY ESTEBAN CHIANG. RESP EVEN AND UNLABORED ON RA, ABDOMEN SOFT FLAT WITH 4 SITES WITH SKIN GLUE, MONITOR SR NO ECTOPY, BILAT SCDS ON IV TO RT HAND #20 WITH NS 75ML UP AT KVO RATEP PER GRAVITY, ID BRACELET TO RT WRIST , PT ID'D WITH 2 IDENTIFIERS 0913 PT SLEEPS IF NOT DISTURBED. VSS.
--- NOTE | 2022-05-20 09:23 | SUR.PHASEI ---
0923 PT SLEEPS IF NOT DISTURBED VSS ABDOMEN SOFT AND UNCHANGED , HANDOFF AT BEDSIDE TO OPS NURSE.
[2022-05-20] MEDS: HYDROcodone-acetaminophen 7.5-325 mg Tablet 1 TAB PO (10:05)
--- NOTE | 2022-05-20 15:25 | ANE.PACU2 ---
Inpatient post-anesthesia follow up: Airway intact: Yes Vital signs: Temperature 98.0 F Pulse Rate 78 Respiratory Rate 17 Blood Pressure 125/79 Pulse Oximetry 100 Oxygen Delivery Me thod Room Air Oxygen Flow Rate Fraction of Inspir ed Oxygen Hydration adequate: Yes Nausea and vomiting: No Pain level: 3 Mental status: Baseline
== END 2022-05-20 10:28 | disposition home or self-care (01) ==
PROVIDERS: Anesthesiology; Visit Provider Surgery
PROC: 0FT44ZZ Resection of Gallbladder, Percutaneous Endoscopic Approach (ICD-10-PCS; CPT 47562; principal; 2022-05-20 07:50)
DX: K80.10 Calculus of gallbladder with chronic cholecystitis without obstruction (principal); K21.9 Gastro-esophageal reflux disease without esophagitis; F41.9 Anxiety disorder, unspecified; F32.A Depression, unspecified; Z87.891 Personal history of nicotine dependence
CPT/HCPCS: 47562; 81025; 84703; 88304; J1100; J1170; J1885; J2405; J2710; J3010; J3490; J7030

== ENCOUNTER → 2022-05-25 10:23 | Outpatient (BNVA) | payer OTHER, SELFPAY | PROVIDERS: Visit Provider Surgery | DX: Z98.890 Other specified postprocedural states (principal); Z90.49 Acquired absence of other specified parts of digestive tract | CPT/HCPCS: 99024 ==